=== PATIENT | female | born 1950 | race Caucasian/White ===

== ENCOUNTER 2018-07-02 05:24 | Day surgery (SDC) | payer MEDICARE ==
[~2018-07-02] VITALS: Ht 162.6 cm; Wt 40.0 kg
[2018-07-02] MEDS ORDERED: SODIUM CHLORIDE 0.9% 1,000 ML IV ONE ×3 (05:57→06:50)
[2018-07-02] MEDS ORDERED: CeFAZolin 2 GM/DEXTROSE 50 ML IV ONE ×2 (06:30→06:43)
[2018-07-02] MEDS ORDERED: BUPIVACAINE HCL/PF 0.5% 30 ML VIAL ONE (06:43)
[2018-07-02 06:51] LABS: BASOPHILS % (AUTO) 1.4 % (0.0-2.0); EOSINOPHILS % (AUTO) 1.8 % (1.0-6.0); HEMATOCRIT 33.2 % (36-46); HEMOGLOBIN 11.5 g/dL (12.0-16.0); LYMPHOCYTES # (AUTO) 0.8 K/uL (1.0-4.8); LYMPHOCYTES % (AUTO) 9.8 % (22.0-44.0); MEAN CORPUSCULAR HEMOGLOBIN 33.5 pg (26.0-34.0); MEAN CORPUSCULAR HGB CONC 34.8 G/dL (31.0-37.0); MEAN CORPUSCULAR VOLUME 97 fL (80-100); MONOCYTES # (AUTO) 0.7 K/uL (0.1-1.0); MONOCYTES % (AUTO) 8.8 % (2.0-9.0); NEUTROPHILS # (AUTO) 6.6 K/uL (1.8-7.7); NEUTROPHILS % (AUTO) 78.2 % (40.0-70.0); RED BLOOD CELL COUNT(AUTO) 3.44 MIL/uL (4.00-5.20); RED CELL DISTRIBUTION WIDTH 14.4 % (11.5-14.5)
[2018-07-02 06:56] LABS: CALCIUM, TOTAL 8.4 mg/dL (8.8-10.5); CREATININE 6.3 mg/dL (0.60-1.30); POTASSIUM 4.6 mmol/L (3.5-5.1)
[2018-07-02 07:02] LABS: ALBUMIN 3.5 g/dL (3.4-5.0); BILIRUBIN,TOTAL 0.3 mg/dL (0.1-1.0); TOTAL PROTEIN, SERUM 7.2 g/dL (6.4-8.2)
[2018-07-02] MEDS ORDERED: FOLI1TAB35 PO (07:04)
[2018-07-02] MEDS ORDERED: LEVO88TA4 PO (07:04)
[2018-07-02] MEDS ORDERED: CLOP75 PO (07:04)
[2018-07-02] MEDS ORDERED: ASPI-1182 PO (07:04)
[2018-07-02] MEDS ORDERED: PARO10TA89 PO (07:04)
[2018-07-02] MEDS ORDERED: PHENY100 PO ×2 (07:04→07:07)
[2018-07-02] MEDS ORDERED: ATOR40TA28 PO (07:07)
[2018-07-02] MEDS ORDERED: CARV12 PO (07:07)
[2018-07-02] MEDS ORDERED: CINA30 PO (07:07)
[2018-07-02] MEDS ORDERED: SEVEC800 PO (07:11)
[2018-07-02] MEDS ORDERED: CLON1PAT14 TD (07:11)
[2018-07-02] MEDS ORDERED: SODIUM CHLORIDE 0.9% 500 ML IV ONE (07:29)
[2018-07-02 07:57] LABS: INR 1.1 (0.9-1.1)
[2018-07-02 08:07] LABS: PLATELET COUNT (AUTO) 203 K/uL (150-450)
[2018-07-02] MEDS ORDERED: HYDROmorphone 2 MG/ML SYRINGE IVP PRN (08:15)
[2018-07-02] MEDS ORDERED: MEPERIDINE-PF 25 MG/ML VIAL IVP PRN (08:15)
[2018-07-02] MEDS ORDERED: FentaNYL CITRATE-PF 100 MCG/2 ML VIAL IVP PRN (08:15)
[2018-07-02] MEDS ORDERED: HYDROmorphone 2 MG/ML SYRINGE ONE (08:59)
[2018-07-02] MEDS ORDERED: ROCURONIUM BROMIDE 10 MG/ML 5 ML VIAL IVP ONE (12:00)
[2018-07-02] MEDS ORDERED: ONDANSETRON HCL 4 MG/2 ML VIAL IVP ONE (12:00)
[2018-07-02] MEDS ORDERED: LIDOCAINE/PF 2% 5 ML VIAL INJ ONE (12:00)
[2018-07-02] MEDS ORDERED: PROPOFOL 1% 20 ML VIAL IVP ONE (12:00)
[2018-07-02] MEDS ORDERED: EPHEDrine SULFATE 50 MG/ML VIAL IVP ONE (12:00)
== END 2018-07-02 11:15 | disposition home or self-care (01) ==
LOC: SURGERY 05:24
PROVIDERS: ATTEND Radiology Vascular & Interventional Radiology
DX: E11.22 Type 2 diabetes mellitus with diabetic chronic kidney disease (principal); I13.2 Hypertensive heart and chronic kidney disease with heart failure and with stage 5 chronic kidney disease, or end stage renal disease; N18.6 End stage renal disease; I50.9 Heart failure, unspecified; J44.9 Chronic obstructive pulmonary disease, unspecified; E03.9 Hypothyroidism, unspecified; E78.00 Pure hypercholesterolemia, unspecified; Z99.2 Dependence on renal dialysis; Z95.5 Presence of coronary angioplasty implant and graft; Z86.69 Personal history of other diseases of the nervous system and sense organs; Z88.1 Allergy status to other antibiotic agents; Z79.82 Long term (current) use of aspirin; Z87.891 Personal history of nicotine dependence; Z90.49 Acquired absence of other specified parts of digestive tract; Z88.8 Allergy status to other drugs, medicaments and biological substances; Z98.890 Other specified postprocedural states; Z79.899 Other long term (current) drug therapy
CPT/HCPCS: 36415; 49324; 80053; 85025; 85610; 85730; C1716; J0690; J1170; J2405; J2704; J3490 ×3; J7030; J7040

== ENCOUNTER 2018-07-03 06:17 | Emergency (ER) | payer MEDICARE, OTHER ==
[~2018-07-03] VITALS: Ht 162.6 cm; Wt 43.6 kg
[~2018-07-03 06:17] MED LIST: ASPI-1182 PO; ATOR40TA28 PO; CARV12 PO; CINA30 PO; CLON1PAT14 TD; CLOP75 PO; FOLI1TAB35 PO; LEVO88TA4 PO; PARO10TA89 PO; PHENY100 PO; SEVEC800 PO
[2018-07-03 06:34] LABS: GLUCOSE,POINT OF CARE 106 MG/DL (70-110)
[2018-07-03 07:50] LABS: BASOPHILS % (AUTO) 1.4 % (0.0-2.0); EOSINOPHILS % (AUTO) 3.2 % (1.0-6.0); HEMATOCRIT 29.4 % (36-46); LYMPHOCYTES # (AUTO) 0.5 K/uL (1.0-4.8); LYMPHOCYTES % (AUTO) 8.1 % (22.0-44.0); MEAN CORPUSCULAR HEMOGLOBIN 33.5 pg (26.0-34.0); MEAN CORPUSCULAR VOLUME 99 fL (80-100); MONOCYTES # (AUTO) 0.6 K/uL (0.1-1.0); MONOCYTES % (AUTO) 10.1 % (2.0-9.0); NEUTROPHILS # (AUTO) 4.5 K/uL (1.8-7.7); NEUTROPHILS % (AUTO) 77.2 % (40.0-70.0); PLATELET COUNT (AUTO) 205 K/uL (150-450); RED BLOOD CELL COUNT(AUTO) 2.98 MIL/uL (4.00-5.20); RED CELL DISTRIBUTION WIDTH 14.4 % (11.5-14.5)
[2018-07-03 08:03] LABS: INR 1.1 (0.9-1.1)
[2018-07-03 08:06] LABS: CALCIUM, TOTAL 8.3 mg/dL (8.8-10.5); CREATININE 8.37 mg/dL (0.60-1.30); POTASSIUM 5.3 mmol/L (3.5-5.1)
[2018-07-03] MEDS ORDERED: ONDANSETRON HCL 4 MG TABLET PO ONE (08:30)
[2018-07-03 09:25] VITALS: BP 185/83
== END 2018-07-03 09:27 | disposition home or self-care (01) ==
LOC: EMS 06:18
DX: T82.838A Hemorrhage due to vascular prosthetic devices, implants and grafts, initial encounter (principal); I10 Essential (primary) hypertension; E78.00 Pure hypercholesterolemia, unspecified; E03.9 Hypothyroidism, unspecified; Z88.1 Allergy status to other antibiotic agents; Z88.8 Allergy status to other drugs, medicaments and biological substances; Z79.82 Long term (current) use of aspirin
CPT/HCPCS: 36415; 80048; 82962; 85025; 85610; 99283; Q0162

== ENCOUNTER 2018-08-01 19:48 | Inpatient (IN) | payer MEDICARE, OTHER ==
[~2018-08-01] VITALS: Ht 162.6 cm; Wt 45.2 kg
[2018-08-01 22:37] VITALS: BP 185/92
[2018-08-01] MEDS ORDERED: LISI-661 PO (22:55)
[2018-08-01] MEDS ORDERED: NIFE90TA38 PO (22:55)
[2018-08-01] MEDS ORDERED: ONDA4 PO (22:55)
[2018-08-01] MEDS ORDERED: OMEP20 PO (22:55)
[2018-08-01] MEDS ORDERED: HYDR-3110 PO (22:55)
[2018-08-01] MEDS ORDERED: ASPI-1182 PO (22:55)
[2018-08-01] MEDS ORDERED: ONDANSETRON HCL 4 MG TABLET PO PRN (23:15)
[2018-08-01 23:32] VITALS: BP 184/78
[2018-08-01 23:37] LABS: BASOPHILS % (AUTO) 0.6 % (0.0-2.0); EOSINOPHILS % (AUTO) 3.5 % (1.0-6.0); HEMATOCRIT 27.8 % (36-46); HEMOGLOBIN 9.3 g/dL (12.0-16.0); LYMPHOCYTES # (AUTO) 1.4 K/uL (1.0-4.8); LYMPHOCYTES % (AUTO) 19.5 % (22.0-44.0); MEAN CORPUSCULAR HEMOGLOBIN 32.7 pg (26.0-34.0); MEAN CORPUSCULAR HGB CONC 33.3 G/dL (31.0-37.0); MEAN CORPUSCULAR VOLUME 98 fL (80-100); MONOCYTES # (AUTO) 0.7 K/uL (0.1-1.0); MONOCYTES % (AUTO) 9.3 % (2.0-9.0); NEUTROPHILS # (AUTO) 4.7 K/uL (1.8-7.7); NEUTROPHILS % (AUTO) 67.1 % (40.0-70.0); PLATELET COUNT (AUTO) 208 K/uL (150-450); RED BLOOD CELL COUNT(AUTO) 2.83 MIL/uL (4.00-5.20); RED CELL DISTRIBUTION WIDTH 14.3 % (11.5-14.5)
[2018-08-01 23:44] LABS: CALCIUM, TOTAL 8.2 mg/dL (8.8-10.5); CREATININE 6.23 mg/dL (0.60-1.30)
[2018-08-01 23:50] LABS: ALBUMIN 3.2 g/dL (3.4-5.0); BILIRUBIN,TOTAL 0.3 mg/dL (0.1-1.0); MAGNESIUM 1.9 mg/dL (1.80-2.40); PHOSPHORUS 4.4 mg/dL (2.5-4.9); TOTAL PROTEIN, SERUM 6.9 g/dL (6.4-8.2)
[2018-08-01] MEDS: ATORVASTATIN CALCIUM 40 MG TABLET PO SCH (23:53)
[2018-08-01] MEDS: CARVEDILOL 12.5 MG TABLET PO SCH (23:53)
[2018-08-01] MEDS: NIFEdipine 90 MG ER TABLET PO SCH (23:54)
[2018-08-02] VITALS (8 sets, daily range): BP systolic 111–174; BP diastolic 48–83
[2018-08-02] MEDS: LEVOTHYROXINE SODIUM 88 MCG TABLET PO SCH (06:11)
[2018-08-02] MEDS: PARoxetine HCL 20 MG TABLET PO SCH (08:01)
[2018-08-02] MEDS: SEVELAMER CARBONATE 800 MG TABLET PO SCH ×3 (08:01→18:01)
[2018-08-02] MEDS: PHENYTOIN SODIUM 100 MG ER CAPSULE PO SCH (08:02)
[2018-08-02] MEDS: VITAMIN B COMP/VIT C/FOLIC ACID CAPSULE PO SCH (08:02)
[2018-08-02] MEDS: CLOPIDOGREL BISULFATE 75 MG TABLET PO SCH (08:03)
[2018-08-02] MEDS: PANTOPRAZOLE SODIUM 40 MG DR TABLET PO SCH (08:03)
[2018-08-02] MEDS: CARVEDILOL 12.5 MG TABLET PO SCH ×2 (08:03→23:37)
[2018-08-02] MEDS: ASPIRIN 81 MG EC TABLET PO SCH (08:03)
[2018-08-02] MEDS: NIFEdipine 90 MG ER TABLET PO SCH ×2 (08:04→23:37)
[2018-08-02] MEDS ORDERED: OMEPRAZOLE 20 MG CAPSULE PO SCH (09:00)
[2018-08-02] MEDS ORDERED: LISINOPRIL 10 MG TABLET PO SCH (09:00)
[2018-08-02] MEDS ORDERED: [UNRECOGNIZED DRUG - OTHER] PO SCH (09:00)
[2018-08-02] MEDS ORDERED: ASPIRIN 81 MG EC TABLET PO SCH (09:00)
[2018-08-02] MEDS ORDERED: LISINOPRIL 20 MG TABLET PO ONE (10:00)
[2018-08-02 12:24] LABS: GLUCOMETER DEV NAME(LOC) 6N.2; GLUCOSE,POINT OF CARE 185 MG/DL (70-110)
[2018-08-02] MEDS ORDERED: SODIUM CHLORIDE 0.9% 2,000 ML IV ONE (12:47)
[2018-08-02] MEDS: ATORVASTATIN CALCIUM 40 MG TABLET PO SCH (21:19)
[2018-08-03 04:48] VITALS: BP 118/62
[2018-08-03] MEDS: LEVOTHYROXINE SODIUM 88 MCG TABLET PO SCH (06:14)
[2018-08-03 07:25] VITALS: BP 148/63
[2018-08-03] MEDS: VITAMIN B COMP/VIT C/FOLIC ACID CAPSULE PO SCH (08:26)
[2018-08-03] MEDS: PHENYTOIN SODIUM 100 MG ER CAPSULE PO SCH (08:26)
[2018-08-03] MEDS: CLOPIDOGREL BISULFATE 75 MG TABLET PO SCH (08:26)
[2018-08-03] MEDS: PARoxetine HCL 20 MG TABLET PO SCH (08:26)
[2018-08-03] MEDS: CARVEDILOL 12.5 MG TABLET PO SCH ×2 (08:26→20:19)
[2018-08-03] MEDS: NIFEdipine 90 MG ER TABLET PO SCH ×2 (08:26→22:17)
[2018-08-03] MEDS: SEVELAMER CARBONATE 800 MG TABLET PO SCH ×3 (08:26→18:09)
[2018-08-03] MEDS: ASPIRIN 81 MG EC TABLET PO SCH (08:27)
[2018-08-03] MEDS: PANTOPRAZOLE SODIUM 40 MG DR TABLET PO SCH (08:27)
[2018-08-03 11:29] VITALS: BP 134/52
[2018-08-03] MEDS ORDERED: MANNITOL 25%-12.5 GM/50 ML VIAL IVP ONE (12:00)
[2018-08-03] MEDS: ACETAMINOPHEN 325 MG TABLET PO PRN ×2 (12:52→22:17)
[2018-08-03 15:25] VITALS: BP 125/57
[2018-08-03 19:53] VITALS: BP 121/57
[2018-08-03] MEDS: ATORVASTATIN CALCIUM 40 MG TABLET PO SCH (20:19)
[2018-08-03 23:39] VITALS: BP 137/73
[2018-08-03] MEDS: HydrOXYzine HCL 10 MG TABLET PO PRN (23:47)
[2018-08-04 04:39] VITALS: BP 153/69
[2018-08-04] MEDS: LEVOTHYROXINE SODIUM 88 MCG TABLET PO SCH (06:04)
[2018-08-04 06:41] LABS: ALBUMIN 3.4 g/dL (3.4-5.0); CALCIUM, TOTAL 9.2 mg/dL (8.8-10.5); CREATININE 7.07 mg/dL (0.60-1.30); PHOSPHORUS 4.3 mg/dL (2.5-4.9); POTASSIUM 5.1 mmol/L (3.5-5.1)
[2018-08-04 07:06] LABS: BASOPHILS % (AUTO) 1.2 % (0.0-2.0); EOSINOPHILS % (AUTO) 5.3 % (1.0-6.0); HEMATOCRIT 28.6 % (36-46); HEMOGLOBIN 9.6 g/dL (12.0-16.0); LYMPHOCYTES # (AUTO) 1.7 K/uL (1.0-4.8); MEAN CORPUSCULAR HGB CONC 33.7 G/dL (31.0-37.0); MEAN CORPUSCULAR VOLUME 98 fL (80-100); MONOCYTES # (AUTO) 0.5 K/uL (0.1-1.0); MONOCYTES % (AUTO) 7.5 % (2.0-9.0); NEUTROPHILS # (AUTO) 3.9 K/uL (1.8-7.7); PLATELET COUNT (AUTO) 239 K/uL (150-450); RED BLOOD CELL COUNT(AUTO) 2.92 MIL/uL (4.00-5.20); RED CELL DISTRIBUTION WIDTH 14.6 % (11.5-14.5)
[2018-08-04 07:17] LABS: HEMOGLOBIN A1C 5.4 % (4.5-6.2)
[2018-08-04 08:11] VITALS: BP 145/59
[2018-08-04] MEDS: PHENYTOIN SODIUM 100 MG ER CAPSULE PO SCH (08:32)
[2018-08-04] MEDS: CARVEDILOL 12.5 MG TABLET PO SCH ×2 (08:32→20:46)
[2018-08-04] MEDS: CLOPIDOGREL BISULFATE 75 MG TABLET PO SCH (08:33)
[2018-08-04] MEDS: NIFEdipine 90 MG ER TABLET PO SCH ×2 (08:33→20:46)
[2018-08-04] MEDS: PANTOPRAZOLE SODIUM 40 MG DR TABLET PO SCH (08:33)
[2018-08-04] MEDS: ASPIRIN 81 MG EC TABLET PO SCH (08:33)
[2018-08-04] MEDS: VITAMIN B COMP/VIT C/FOLIC ACID CAPSULE PO SCH (08:33)
[2018-08-04] MEDS: PARoxetine HCL 20 MG TABLET PO SCH (08:33)
[2018-08-04] MEDS: SEVELAMER CARBONATE 800 MG TABLET PO SCH ×3 (09:45→20:46)
[2018-08-04 12:00] VITALS: BP 133/60
[2018-08-04] MEDS: ACETAMINOPHEN 325 MG TABLET PO PRN (16:15)
[2018-08-04] MEDS: ATORVASTATIN CALCIUM 40 MG TABLET PO SCH (20:46)
[2018-08-04] MEDS: DOCUSATE SODIUM 100 MG CAPSULE PO SCH (20:46)
[2018-08-04] MEDS: SENNA/DOCUSATE SODIUM 8.6-50 MG TABLET PO SCH (20:47)
[2018-08-04] MEDS: HydrOXYzine HCL 10 MG TABLET PO PRN (20:55)
[2018-08-04 21:43] VITALS: BP 153/76
[2018-08-04 23:43] VITALS: BP 156/72
[2018-08-05] MEDS: ACETAMINOPHEN 325 MG TABLET PO PRN ×2 (00:05→11:12)
[2018-08-05] MEDS: LEVOTHYROXINE SODIUM 88 MCG TABLET PO SCH (05:19)
[2018-08-05] MEDS: LACTULOSE 20 GM/30 ML SOLUTION UDCUP PO SCH ×3 (05:19→13:00)
[2018-08-05 05:24] VITALS: BP 184/91
[2018-08-05 06:03] LABS: BASOPHILS % (AUTO) 1.9 % (0.0-2.0); EOSINOPHILS % (AUTO) 6.1 % (1.0-6.0); HEMATOCRIT 26.8 % (36-46); HEMOGLOBIN 9.1 g/dL (12.0-16.0); LYMPHOCYTES # (AUTO) 1.3 K/uL (1.0-4.8); LYMPHOCYTES % (AUTO) 19.3 % (22.0-44.0); MEAN CORPUSCULAR HGB CONC 33.9 G/dL (31.0-37.0); MEAN CORPUSCULAR VOLUME 97 fL (80-100); MONOCYTES # (AUTO) 0.5 K/uL (0.1-1.0); MONOCYTES % (AUTO) 7.8 % (2.0-9.0); NEUTROPHILS # (AUTO) 4.5 K/uL (1.8-7.7); NEUTROPHILS % (AUTO) 64.9 % (40.0-70.0); PLATELET COUNT (AUTO) 230 K/uL (150-450); RED BLOOD CELL COUNT(AUTO) 2.75 MIL/uL (4.00-5.20); RED CELL DISTRIBUTION WIDTH 14.9 % (11.5-14.5)
[2018-08-05 06:16] LABS: CREATININE 8.32 mg/dL (0.60-1.30); PHOSPHORUS 4.7 mg/dL (2.5-4.9)
[2018-08-05 07:42] VITALS: BP 136/59
[2018-08-05] MEDS: DOCUSATE SODIUM 100 MG CAPSULE PO SCH (08:01)
[2018-08-05] MEDS: PHENYTOIN SODIUM 100 MG ER CAPSULE PO SCH (08:01)
[2018-08-05] MEDS: CLOPIDOGREL BISULFATE 75 MG TABLET PO SCH (08:01)
[2018-08-05] MEDS: SENNA/DOCUSATE SODIUM 8.6-50 MG TABLET PO SCH (08:01)
[2018-08-05] MEDS: SEVELAMER CARBONATE 800 MG TABLET PO SCH ×2 (08:01→12:22)
[2018-08-05] MEDS: ASPIRIN 81 MG EC TABLET PO SCH (08:02)
[2018-08-05] MEDS: CARVEDILOL 12.5 MG TABLET PO SCH (08:02)
[2018-08-05] MEDS: NIFEdipine 90 MG ER TABLET PO SCH (08:02)
[2018-08-05] MEDS: VITAMIN B COMP/VIT C/FOLIC ACID CAPSULE PO SCH (08:02)
[2018-08-05] MEDS: PANTOPRAZOLE SODIUM 40 MG DR TABLET PO SCH (08:02)
[2018-08-05] MEDS: PARoxetine HCL 20 MG TABLET PO SCH (08:03)
[2018-08-05 11:05] VITALS: BP 157/71
[2018-08-05] MEDS ORDERED: ONDANSETRON HCL 4 MG TABLET PO ONE (14:00)
[2018-08-05] MEDS ORDERED: HYDROCODONE/ACETAMINOPHEN 5-325 MG TABLET PO ONE (14:00)
[2018-08-05] MEDS ORDERED: DiphenhydrAMINE HCL 50 MG/ML VIAL IVP ONE (14:00)
[2018-08-05] MEDS ORDERED: HYDROCODONE/ACETAMINOPHEN 5-325 MG TABLET PO PRN (14:00)
[2018-08-12] MEDS ORDERED: CloNIDine 0.3 MG/24 HOUR PATCH TD SCH (09:00)
== END 2018-08-05 15:50 | disposition home or self-care (01) | DRG 314 ==
LOC: 6N 22:01
PROVIDERS: ADMIT Internal Medicine; ATTEND Internal Medicine
PROC: 5A1D70Z Performance of Urinary Filtration, Intermittent, Less than 6 Hours Per Day (ICD-10-PCS; principal; 2018-08-02)
PROC: 5A1D70Z Performance of Urinary Filtration, Intermittent, Less than 6 Hours Per Day (ICD-10-PCS; 2018-08-03)
PROC: 5A1D70Z Performance of Urinary Filtration, Intermittent, Less than 6 Hours Per Day (ICD-10-PCS; 2018-08-04)
DX: T82.868A Thrombosis due to vascular prosthetic devices, implants and grafts, initial encounter (principal); N18.6 End stage renal disease; I13.2 Hypertensive heart and chronic kidney disease with heart failure and with stage 5 chronic kidney disease, or end stage renal disease; K92.2 Gastrointestinal hemorrhage, unspecified; N25.81 Secondary hyperparathyroidism of renal origin; Z99.2 Dependence on renal dialysis; E78.5 Hyperlipidemia, unspecified; G40.909 Epilepsy, unspecified, not intractable, without status epilepticus; D63.1 Anemia in chronic kidney disease; F17.210 Nicotine dependence, cigarettes, uncomplicated; I50.9 Heart failure, unspecified; Y83.8 Other surgical procedures as the cause of abnormal reaction of the patient, or of later complication, without mention of misadventure at the time of the procedure; F41.9 Anxiety disorder, unspecified; F32.9 Major depressive disorder, single episode, unspecified; I25.10 Atherosclerotic heart disease of native coronary artery without angina pectoris; Z95.1 Presence of aortocoronary bypass graft; E78.00 Pure hypercholesterolemia, unspecified; E03.9 Hypothyroidism, unspecified; Z90.49 Acquired absence of other specified parts of digestive tract; Y92.89 Other specified places as the place of occurrence of the external cause
CPT/HCPCS: 83036; 83735; 84100; 87081; 87340; G0378; J2150; J7030; Q0162